=== PATIENT | male | born 1950 | race Caucasian/White ===

== ENCOUNTER → 2019-03-11 | Outpatient (CLI) | payer MEDICARE, OTHER ==
[2019-03-11 15:59] LABS: Basophils % (A) 1 %; Eosinophils # (A) 0.1 k/uL (0-0.7); Eosinophils % (A) 2 %; HCT 43.4 % (39.0-53.0); HGB 14.4 gm/dL (13.0-17.5); Lymphocytes # (A) 1.5 k/uL (1.0-4.8); Lymphocytes % (A) 35 %; MCH 29.5 pg (25.0-35.0); MCHC 33.2 g/dL (31.0-37.0); MCV 88.7 fL (80.0-100.0); Mean Platelet Volume 6.7; Monocytes # (A) 0.2 k/uL (0-1.0); Monocytes % (A) 5 %; Neutrophils # (A) 2.3 k/uL (1.3-7.7); Neutrophils % (A) 55 %; Platelet Count 193 k/uL (150-450); RBC 4.89 m/uL (4.30-5.90); RDW 12.2 % (11.5-15.5); WBC 4.2 k/uL (3.8-10.6)
[2019-03-11 16:08] LABS: Potassium 4.2 mmol/L (3.5-5.1)
== END | disposition home or self-care (01) ==
LOC: LABPAT 14:45
PROVIDERS: ATTEND Orthopaedic Surgery
DX: Z01.818 Encounter for other preprocedural examination (principal); M75.41 Impingement syndrome of right shoulder; Z01.812 Encounter for preprocedural laboratory examination
CPT/HCPCS: 36415; 80051; 85025; 93005

== ENCOUNTER 2019-03-25 10:59 | Day surgery (SDC) | payer MEDICARE, OTHER ==
[2019-03-21 10:48] VITALS: BMI 24.0
--- NOTE | 2019-03-24 11:35 | HP ---
HISTORY AND PHYSICAL REASON FOR ADMISSION: Surgery 03/25/2019 Scotty Aguayo is a 68-year-old patient seen with progressive right shoulder pain. After having treatment options discussed with him, he elected to proceed with right shoulder arthroscopy. Consent was obtained. PAST MEDICAL HISTORY: Noncontributory. PAST SURGICAL HISTORY: Cataract surgery. MEDICATIONS: Proscar. ALLERGIES: None. SOCIAL HISTORY: Denies current tobacco use. PHYSICAL EXAMINATION: Evaluation of the right shoulder: Flexion is 120 degrees. Abduction is 90 degrees. External rotation is 30 degrees with pain and weakness. Tenderness along the anterolateral acromion and rotator cuff insertion site. Impingement sign is positive at 90 degrees. Drop-arm sign is positive. His distal neurovascular exam is intact. RADIOGRAPHS: Of right shoulder revealed a type 2 anterior acromion, acromioclavicular joint osteoarthritis. Glenohumeral joint osteoarthritis of the right shoulder. MRI revealed rotator cuff tear, impingement, acromioclavicular and glenohumeral joint osteoarthritis. IMPRESSION: 1. Right shoulder impingement with rotator cuff tear. 2. Right shoulder acromioclavicular joint osteoarthritis. 3. Right shoulder glenohumeral joint osteoarthritis. PLAN: Right shoulder arthroscopy with subacromial decompression, possible arthroscopic rotator cuff repair, probable Hugo procedure and debridement. Surgery 03/25/2019. MMODL / IJN: [id number] /
[~2019-03-25 10:59] MED LIST: DEXAMETHASONE SOD PHOSPHATE 10 MG/ML 1 ML VIAL IV ONE; HYDROmorphone 0.5 MG/0.5 ML SYRINGE IVP PRN; KETOROLAC 30 MG/ML 1 ML VIAL IVP SCH; LACTATED RINGERS 1,000 ML IV SCH; LIDOCAINE 1% 20 ML VIAL (10MG/ML) FOR IV START INTRADERMA PRN; ONDANSETRON 4 MG/2 ML VIAL IVP ONE; ONDANSETRON 4 MG/2 ML VIAL IVP PRN
[2019-03-25] MEDS ORDERED: MIDAZOLAM (PF) 2 MG/2 ML VIAL IV ONE (11:54)
--- NOTE | 2019-03-25 12:04 | P.ANPRN ---
Procedure Note - Anesthesia - Nerve Block Performed Right Interscalene Time Out Performed: Yes (:52) Date of Procedure: 03/25/19 Procedure Start Time: :52 Procedure Stop Time: 12:06 Location of Patient Procedure: PreOp Indication: Acute Post-Operative Pain, Requested by physician (Dr frias) Sedation Type: Sedate with meaningful contact maintained Preparation: Sterile Prep Position: Supine Catheter: None Needle Types: Pajunk (22g) Injectate: 0.5% Ropivacaine (see comment for volume) (23 cc, Decadron 4mg) Blood Aspirated: No Pain Paresthesia on Injection Noted: No Resistance on Injection: Normal Events: Uneventful and Well Tolerated
[2019-03-25] MEDS ORDERED: PROPOFOL 10 MG/ML 20 ML VIAL IV ONE (13:39)
[2019-03-25] MEDS ORDERED: DEXAMETHASONE SOD PHOSPHATE 4 MG/ML 1 ML VIAL ONE (13:39)
[2019-03-25] MEDS ORDERED: LIDOCAINE 1% INJ 10MG/ML (20 ML MDV) ONE (13:39)
[2019-03-25] MEDS ORDERED: SUCCINYLCHOLINE CHLORIDE 100 MG/5 ML SYR IV ONE (13:39)
[2019-03-25] MEDS ORDERED: MIDAZOLAM 2 MG/2 ML VIAL ONE (13:39)
[2019-03-25] MEDS ORDERED: ROPIVACAINE 5 MG/ML 30 ML VIAL ONE (13:39)
--- NOTE | 2019-03-25 15:08 | P.OP ---
Date of Procedure: 03/25/19 Preoperative Diagnosis: Right shoulder impingement Postoperative Diagnosis: 1. Right shoulder impingement 2. Right shoulder acromioclavicular joint osteoarthritis 3. Right shoulder partial long head biceps tendon tear 4. Right shoulder glenohumeral joint osteoarthritis 5. Right shoulder superficial labral tear 6. Right shoulder partial superficial rotator cuff tear Procedure(s) Performed: 1. Right shoulder arthroscopic subacromial decompression 2. Right shoulder arthroscopic Hugo procedure 3. Right shoulder arthroscopic biceps tenotomy 4. Right shoulder arthroscopic debridement labral tear 5. Right shoulder arthroscopic debridement superficial rotator cuff tear Anesthesia: GETA, regional (Interscalene block) Surgeon: Patrick Quintanilla Estimated Blood Loss (ml): 8 Pathology: none sent Condition: stable Disposition: PACU Indications for Procedure: 68-year-old patient seen with progressive right shoulder pain. After treatment options were discussed with him, he elected to proceed with arthroscopy. Operative Findings: See description of procedure Description of Procedure: Patient underwent an interscalene block by department of anesthesia for postoperative pain management. The patient was then taken to the operative suite. The patient underwent a general anesthetic by the department of anesthesia. The patient was placed into a lateral position and secured. There was appropriate padding of the bony prominence. Right shoulder was then prepped and draped in normal sterile orthopedic fashion. We placed the extremity in 10 pounds of longitudinal traction. A posterior incision was now made for a posterior working portal site. The trocar and cannula were inserted into the glenohumeral joint. Arthroscopy was initiated. Spinal needle was now inserted anteriorly, to ascertain the anterior working portal site. An incision was now made in that area, a trocar was inserted followed by a probe. There was superficial tearing of the superior labrum. There was partial tearing and hyperemia long head biceps tendon. There were grade 4 chondromalacia changes of the glenoid fossa and grade 3/4 chondromalacia of the humeral head with diffuse areas of exposed bone on the glenoid fossa side. The inferior and posterior labrum were stable. There was no evidence for rotator cuff tear visualized from glenohumeral side. I performed an arthroscopic biceps tenotomy. I debrided the superficial labral tear down to stable labral tissue. The residual labrum was stable. At this point instruments removed from glenohumeral joint. Utilizing the posterior working portal site, the trocar and cannula were inserted into the subacromial space. Arthroscopy initiated. I made an incision 2 fingerbreadths lateral to the acromion. I introduced my trocar followed by my ArthroCare ablator. I now began ablating thick subacromial bursal tissue, which exposed the undersurface of the anterior acromion. There was diminished subacromial space. There was a very prominent anterior acromion. A motorized bur was introduced and a subacromial decompression was performed. I also excised some osteophytes off the inferior aspect of the distal clavicle. The AC joint was visualized and noted to be fairly arthritic. The motorized bur was introduced in the anterior portal site and a Hugo procedure was performed without difficulty, decompressing the AC joint nicely. I turned my attention to the rotator cuff. There was some superficial tearing along the midportion distal supraspinatus. I used a motorized shaver and debrided that area. The residual tendon tissue was stable. There was no evidence for full-thickness perforation. At this point I injected 1 mL Renue intra-articular. Instruments now removed from the portal sites. All portal sites were approximated with nylon suture. Sterile dressings were applied followed by a shoulder sling. The patient was awakened, transferred to a bed, and taken to recovery in stable condition.
[2019-03-25 15:13] VITALS: TEMP 98
[2019-03-25 15:19] VITALS: RESP 16
[2019-03-25 16:16] VITALS: BP 137/83; PULSE 77
== END 2019-03-25 16:32 | disposition home or self-care (01) ==
LOC: OR 10:59
PROVIDERS: ATTEND Orthopaedic Surgery
DX: M75.101 Unspecified rotator cuff tear or rupture of right shoulder, not specified as traumatic (principal); M75.41 Impingement syndrome of right shoulder; M19.011 Primary osteoarthritis, right shoulder; S46.111A Strain of muscle, fascia and tendon of long head of biceps, right arm, initial encounter; S43.431A Superior glenoid labrum lesion of right shoulder, initial encounter; X58.XXXA Exposure to other specified factors, initial encounter; M94.211 Chondromalacia, right shoulder; M25.711 Osteophyte, right shoulder; N40.0 Benign prostatic hyperplasia without lower urinary tract symptoms; Z98.49 Cataract extraction status, unspecified eye; Z79.899 Other long term (current) drug therapy
CPT/HCPCS: 29823; 64415; C1765; J2250 ×2; J1100 ×2; J0690; J2405; J2001; J2795; J0330; J2704

== ENCOUNTER 2019-09-28 23:48 | Emergency (ER) | payer MEDICARE, OTHER ==
[2019-09-29] MEDS ORDERED: TOPICAL SKIN ADHESIVE 1 EACH AMP TOPICAL ONE (00:16)
[2019-09-29] MEDS ORDERED: WATER FOR IRRIG, STERILE 1,000 ML BTL IRRIGATION ONE (00:16)
[2019-09-29] MEDS ORDERED: DIPH,PERTUS(ACELL)TETVAC-LF 0.5 ML VIAL IM ONE (00:16)
--- NOTE | 2019-09-29 01:01 | ED ---
Wound/Laceration HPI - General Chief Complaint: Wound/Laceration Stated Complaint: Lt hand laceration Time Seen by Provider: 09/29/19 00:09 Source: patient, family Mode of arrival: ambulatory Limitations: no limitations - History of Present Illness Initial Comments: 68 year-old male patient presents to the emergency department today for evaluation of lacerations to the left middle fingers. Patient states just prior to arrival he was coming in on and when he slipped and cut his fingers. Patient states he did clean the wounds and applied Band-Aids but was having difficulty getting the bleeding to stop so presented for further evaluation. Patient states his last tetanus vaccine was 6 years ago. He denies any difficulty with range of motion to the fingers. Denies numbness or tingling. Denies any other injuries. Denies use of anticoagulants or antiplatelet medications.Patient denies any headache, neck pain, back pain, chest pain, shortness of breath, dizziness, weakness, abdominal pain, nausea, vomiting, or difficulties with bowel movements or urination. - Related Data Home Medications Medication Instructions Recorded Confirmed Finasteride [Proscar] 5 mg PO HS 03/21/19 03/25/19 Previous Rx's Medication Instructions Recorded HYDROcodone/APAP 7.5-325MG [[place] 1 each PO Q6HR PRN #28 tab 03/25/19 7.5] Allergies Allergy/AdvReac Type Severity Reaction Status Date / Time No Known Allergies Allergy Verified 09/29/19 00:00 Review of Systems ROS Statement: Those systems with pertinent positive or pertinent negative responses have been documented in the HPI. ROS Other: All systems not noted in ROS Statement are negative. Past Medical History Past Medical History: Hypertension, Osteoarthritis (OA), Prostate Disorder Additional Past Medical History / Comment(s): HYPERTENSION ON MED FOR 6 MONTHS ONLY-1989 History of Any Multi-Drug Resistant Organisms: None Reported Additional Past Surgical History / Comment(s): LEFT EYE - DETACHED RETINA SURGERY, CATARACT SURGERY -LEFT EYE , RIGHT ELBOW X2. MASS BEHIND LEFT KNEE REMOVED Past Anesthesia/Blood Transfusion Reactions: Postoperative Nausea & Vomiting (PONV) Past Psychological History: No Psychological Hx Reported Smoking Status: Former smoker Past Alcohol Use History: None Reported Past Drug Use History: None Reported - Past Family History Mother Family Medical History: Cancer General Exam Limitations: no limitations General appearance: alert, in no apparent distress, other (This is a well- developed, well-nourished adult male patient in no acute distress. Vital signs upon presentation are temperature 98.4F, pulse 79, respirations 20, blood pressure 157/90, pulse ox 97% on room air) Respiratory exam: Present: normal lung sounds bilaterally. Absent: respiratory distress, wheezes, rales, rhonchi, stridor Cardiovascular Exam: Present: regular rate, normal rhythm, normal heart sounds. Absent: systolic murmur, diastolic murmur, rubs, gallop, clicks Extremities exam: Present: full ROM (Full flexion and extension noted of the left middle and fourth digit.), normal capillary refill, other (There are avulsion injuries noted to the distal tips of the left middle and fourth digits. There is mild bleeding noted. Skin is otherwise pink, warm, dry. Cap refills less than 3 seconds. Radial pulses 2+ and equal bilaterally.). Absent: tenderness, pedal edema, joint swelling, calf tenderness Neurological exam: Present: alert, oriented X3, CN II-XII intact Psychiatric exam: Present: normal affect, normal mood Skin exam: Present: warm, dry, intact, normal color. Absent: rash Course Vital Signs 09/28/19 09/29/19 23:56 01:07 Temperature 98.4 F 98.3 F Pulse Rate 79 80 Respiratory 20 18 Rate Blood Pressure 157/90 156/86 O2 Sat by Pulse 97 100 Oximetry Procedures - Laceration Laceration #1 Consent Obtained: verbal consent Indication: laceration Site: hand (Left middle and fourth digit) Size (cm): 1 Description: avulsion Depth: simple, single layer Pre-repair: irrigated extensively Type of Sutures: other (Exofin skin adhesive) Patient Tolerated Procedure: well, no complications Medical Decision Making - Medical Decision Making 68 year-old male patient presented to the emergency department today for evaluation of laceration to the left middle fingers. Physical examination did reveal small skin avulsion injuries noted to the distal tips of the left middle and fourth digits. Did cleanse the wounds utilizing sterile water. Wounds were repaired using skin adhesive. He was educated regarding signs or symptoms of infection. He is instructed to follow-up with the primary care physician for recheck in 1-2 days. Return parameters were discussed in detail. He verbalizes understanding and agrees with this plan. Disposition Clinical Impression: Avulsion of skin of finger Disposition: HOME SELF-CARE Condition: Good Instructions (If sedation given, give patient instructions): Skin Avulsion (ED), Skin Adhesive Care (ED) Additional Instructions: Monitor for signs or symptoms of infection including but not limited to redness, swelling, drainage of pus, fever, or chills. Take Tylenol Motrin for pain control. Follow-up with your primary care physician for recheck in 1-2 days. Return to the emergency department immediately for any new, worsening, or concerning symptoms. Is patient prescribed a controlled substance at d/c from ED?: No Referrals: Tye Padron MD [Primary Care Provider] - 1-2 days Time of Disposition: 01:01
[2019-09-29 01:11] VITALS: BP 156/86; PULSE 80; RESP 18; TEMP 98.3
== END 2019-09-29 01:07 | disposition home or self-care (01) ==
LOC: EC 23:48
DX: S61.203A Unspecified open wound of left middle finger without damage to nail, initial encounter (principal); S61.205A Unspecified open wound of left ring finger without damage to nail, initial encounter; Z23 Encounter for immunization; I10 Essential (primary) hypertension; Z79.899 Other long term (current) drug therapy; Z87.891 Personal history of nicotine dependence; W26.0XXA Contact with knife, initial encounter; Y93.G3 Activity, cooking and baking; Y92.000 Kitchen of unspecified non-institutional (private) residence as the place of occurrence of the external cause
CPT/HCPCS: 12001; 90471; 90715; 99282

== ENCOUNTER 2021-07-17 18:49 | Emergency (ER) | payer MEDICARE, OTHER ==
[2021-07-17 19:31] VITALS: BP 154/101; PULSE 67; RESP 18; TEMP 98.4
--- NOTE | 2021-07-17 20:46 | XR ---
EXAMINATION TYPE: XR hand complete RT DATE OF EXAM: 07/17/2021 COMPARISON: NONE HISTORY: Hand pain TECHNIQUE: 3 views of the right hand were obtained FINDINGS: The metacarpals are intact. Carpal bones are intact. I see no fracture nor dislocation. The re is compact bone in the distal phalanx of the middle finger consistent with bone island. IMPRESSION: No acute abnormality of the right hand.
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
== END 2021-07-17 21:08 | disposition home or self-care (01) ==
LOC: EC 18:49
DX: S60.221A Contusion of right hand, initial encounter (principal); I10 Essential (primary) hypertension; M19.90 Unspecified osteoarthritis, unspecified site; Z79.899 Other long term (current) drug therapy; V22.4XXA Motorcycle driver injured in collision with two- or three-wheeled motor vehicle in traffic accident, initial encounter; Y92.410 Unspecified street and highway as the place of occurrence of the external cause; Y93.55 Activity, bike riding
CPT/HCPCS: 99284

== ENCOUNTER 2021-09-20 17:57 | Emergency (ER) | payer MEDICARE, OTHER ==
[2021-09-20 19:05] VITALS: BP 174/93; PULSE 59; RESP 20; TEMP 97.7
[2021-09-20 20:55] LABS: Appearance,Urine Clear (Clear); Bilirubin,Urine Negative (Negative); Blood,Urine Negative (Negative); Color,Urine Yellow; Glucose,Urine (UA) Negative (Negative); Ketones,Urine Negative (Negative); Leukocyte Esterase,Urine Negative (Negative); Nitrite,Urine Negative (Negative); PH, Urine 5.5 (5.0-8.0); Protein,Urine Negative (Negative); Specific Gravity,Urine 1.009 (1.001-1.035); Urobilinogen,Urine <2.0 mg/dL (<2.0)
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
== END 2021-09-20 22:26 | disposition home or self-care (01) ==
LOC: EC 17:57
DX: R33.9 Retention of urine, unspecified (principal); I10 Essential (primary) hypertension; Z79.899 Other long term (current) drug therapy
CPT/HCPCS: 51702; 51798; 81003; 99283

== ENCOUNTER 2023-10-06 19:16 | Emergency (ER) | payer MEDICARE, OTHER ==
--- NOTE | 2023-10-06 20:08 | ED ---
General Adult HPI - General Chief complaint: Cardiac Arrest/CPR Stated complaint: Cardiac Arrest Time Seen by Provider: 10/06/23 19:16 Source: EMS, RN notes reviewed, old records reviewed Mode of arrival: EMS - History of Present Illness Initial comments: This is a 72-year-old male who was a witnessed arrest at a restaurant bystanders immediately started CPR patient had agonal respirations when fire arrived and an agonal rhythm when EMS arrived but had no pulses. CPR was started immediately ACLS protocol was followed by the time the patient arrived to the emergency department he was in PEA and had already received 4 epinephrines and been about half an hour since EMS arrived at the scene. No one was with the patient to give any further history. Patient arrived was intubated and in PEA. - Related Data Home Medications Medication Instructions Recorded Confirmed Finasteride [Proscar] 5 mg PO HS 03/21/19 03/25/19 Previous Rx's Medication Instructions Recorded HYDROcodone/APAP 7.5-325MG [Lane 1 each PO Q6HR PRN #28 tab 03/25/19 7.5] Allergies Allergy/AdvReac Type Severity Reaction Status Date / Time No Known Allergies Allergy Verified 09/20/21 19:01 Review of Systems ROS Statement: Those systems with pertinent positive or pertinent negative responses have been documented in the HPI. ROS Other: All systems not noted in ROS Statement are negative. Past Medical History Past Medical History: Hypertension, Osteoarthritis (OA), Prostate Disorder Additional Past Medical History / Comment(s): HYPERTENSION ON MED FOR 6 MONTHS ONLY-1989 History of Any Multi-Drug Resistant Organisms: None Reported Past Surgical History: No Surgical Hx Reported Additional Past Surgical History / Comment(s): LEFT EYE - DETACHED RETINA SURGERY, CATARACT SURGERY -LEFT EYE , RIGHT ELBOW X2. MASS BEHIND LEFT KNEE REMOVED Past Anesthesia/Blood Transfusion Reactions: Postoperative Nausea & Vomiting (PONV) Past Psychological History: No Psychological Hx Reported Smoking Status: Never smoker Past Alcohol Use History: None Reported Past Drug Use History: None Reported - Past Family History Mother Family Medical History: Cancer General Exam - General Exam Comments Initial Comments: GENERAL: Patient is unresponsive and pale PULMONARY: No breath sounds when the patient is not being bagged CARDIOVASCULAR: No heart sounds heard. No pulses palpated ABDOMEN: No gross abnormality SKIN: Pale NEUROLOGIC: Patient is unresponsive MUSCULOSKELETAL: Normal extremities with adequate strength and full range of motion. PSYCHIATRIC: Unable to assess Medical Decision Making - Medical Decision Making Was pt. sent in by a medical professional or institution ([facility], OFFICE ASSISTANT, urgent care, hospital, or penitentiary...) When possible be specific @ -No Did you speak to anyone other than the patient for history (EMS, parent, family, police, friend...)? What history was obtained from this source @ -No Did you review nursing and triage notes (agree or disagree)? Why? @ -I reviewed and agree with nursing and triage notes Were old charts reviewed (outside hosp., previous admission, EMS record, old EKG, old radiological studies, urgent care reports/EKG's, penitentiary records)? Report findings @ -I reviewed prior charts on this patient Differential Diagnosis (chest pain, altered mental status, abdominal pain women, abdominal pain men, vaginal bleeding, weakness, fever, dyspnea, syncope, headache, dizziness, GI bleed, back pain, seizure, CVA, palpatations, mental health, musculoskeletal)? @ -Respiratory arrest, cardiac arrest, asystole, PEA, this is not an inclusive list EKG interpreted by me (3pts min.). @ -As above X-rays interpreted by me (1pt min.). @ -None done CT interpreted by me (1pt min.). @ -None done U/S interpreted by me (1pt. min.). @ -None done What testing was considered but not performed or refused? (CT, X-rays, U/S, labs)? Why? @ -None What meds were considered but not given or refused? Why? @ -None Did you discuss the management of the patient with other professionals (professionals i.e. [facility], OFFICE ASSISTANT, lab, RT, psych nurse, psychiatric social worker, lining baster, teacher, eeo officer, heel caser)? Give summary @ -No Was smoking cessation discussed for >3mins.? @ -No Was critical care preformed (if so, how long)? @ -35 minutes Were there social determinants of health that impacted care today? How? (Homelessness, low income, unemployed, alcoholism, drug addiction, transportation, low edu. Level, literacy, decrease access to med. care, nursing home, rehab)? @ -No Was there de-escalation of care discussed even if they declined (Discuss DNR or withdrawal of care, Hospice)? DNR status @ -No What co-morbidities impacted this encounter? (DM, HTN, Smoking, COPD, CAD, Cancer, CVA, ARF, Chemo, Hep., AIDS, mental health diagnosis, sleep apnea, mo rbid obesity)? @ -None Was patient admitted / discharged? Hospital course, mention meds given and route, prescriptions, significant lab abnormalities, going to OR and other pertinent info. @ -ACLS protocol was followed the patient was in the emergency department patient continued to be in PEA with bradycardia rhythm. Patient never had pulses return patient was intubated and bagged all times. Patient had 4 epinephrines prior to arrival for more in the emergency department he also received magnesium sulfate. Patient also received sodium bicarb. Patient was brought announced after the heart was looked at with ultrasound there was no heart activity at all. This was done at 724. I did speak with the medical center representative's office and they wanted the patient to go [place] the [facility] [place] he can find next of kin. Undiagnosed new problem with uncertain prognosis? @ -No Drug Therapy requiring intensive monitoring for toxicity (Heparin, Nitro, Insulin, Cardizem)? @ -No Were any procedures done? @ -No Diagnosis/symptom? @ -Cardiopulmonary arrest Acute, or Chronic, or Acute on Chronic? @ -Acute Uncomplicated (without systemic symptoms) or Complicated (systemic symptoms)? @ -Complicated Side effects of treatment? @ -No Exacerbation, Progression, or Severe Exacerbation? @ -No Poses a threat to life or bodily function? How? (Chest pain, [place], [place], pneumonia, PE, COPD, DKA, ARF, appy, cholecystitis, CVA, Diverticulitis, Homicidal, Suicidal, threat to staff... and all critical care pts) @ -Patient is currently Critical Care Time Critical Care Time: Yes Total Critical Care Time: 35 Disposition Clinical Impression: Cardiopulmonary arrest Disposition: Referrals: None,Stated [Primary Care Provider] - 1-2 days Time of Disposition: 20:08 Preliminary Cause of : Cardiopulmonary arrest and pronounced at 724
== END 2023-10-06 22:03 | disposition expired ==
LOC: EC 19:16
DX: I46.9 Cardiac arrest, cause unspecified (principal); I10 Essential (primary) hypertension
CPT/HCPCS: 92950; 99291